=== PATIENT | male | born 1960 | race Asian ===

== ENCOUNTER 2017-06-27 13:26 | Emergency (ER) | payer BC ==
[~2017-06-27] VITALS: Ht 175.3 cm; Wt 71.9 kg
[~2017-06-27 13:26] MED LIST: UNABLE
[2017-06-27 13:32] VITALS: TEMP 36.8; Ht 175.3 cm; Wt 71.9 kg
--- NOTE | 2017-06-27 13:55 | EMERGENCY ROOM VISIT NOTE ---
History Report prepared by Ángela: Favian Adams Under the Supervision of: Dr. Sanjay Lam M.D. First contact with patient: 13:38 Chief Complaint: NEURO SYMPTOMS Stated Complaint: STROKE SYMPTOMS History of Present Illness The patient is a 57 year old male who presents to the Emergency Room with complaints of constant neuro symptoms starting yesterday evening. The patient states that he saw his doctor, and they notes that he was having some weakness in the right side of his face. He additionally notes that last weak he was having some itchiness, he has floaters in his eyes, and he has some intermittent neck pain. The patient denies any headache, hand weakness, chest pain, and any recent tick bites. He additionally notes that he has high cholesterol and is prediabetic. Source of History: patient Onset: yesterday evening Position: other (left face) Quality: other (weakness) Timing: constant Associated Symptoms: + neck pain, No headache Review of Systems See HPI for pertinent positives & negatives. A total of 10 systems reviewed and were otherwise negative. Past Medical & Surgical Medical Problems: (1) HLD (hyperlipidemia) (2) Prediabetes Social History Smoking Status: Never Smoker Marital Status: single Occupation Status: employed Current/Historical Medications Scheduled Prednisone (Prednisone Tab), 60 MG PO DAILY Allergies Coded Allergies: No Known Allergies (Unverified , 06/27/17) Physical Exam Vital Signs Date Time Temp Pulse Resp B/P (MAP) Pulse Ox O2 Delivery O2 Flow Rate FiO2 06/27/17 16:38 60 06/27/17 16:31 59 18 126/86 98 Room Air 06/27/17 15:31 68 20 120/71 97 Room Air 06/27/17 13:32 36.8 83 20 126/75 95 Room Air Physical Exam GENERAL: Patient is well appearing and in no acute distress. HEENT: No acute trauma, normocephalic atraumatic, mucous membranes moist, no nasal congestion, no scleral icterus. NECK: No stridor, no adenopathy, no meningismus, trachea is midline. LUNGS: No dyspnea. Clear to auscultation and equal bilaterally. No wheeze, no rhonchi. HEART: Regular rate and rhythm. No murmurs, rubs, gallops appreciated. ABDOMEN: Soft, nontender, bowel sounds positive, no masses appreciated, no peritonitis. BACK: No midline tenderness, no CVA tenderness EXTREMITIES: Normal motion all extremities, no cyanosis, no edema. NEUROLOGIC: Right lower facial droop with mild weakness of the right upper face. Alert and oriented, no acute motor or sensory deficits, no focal weakness , cranial nerves grossly intact. SKIN: No rash, no jaundice, no diaphoresis. Medical Decision & Procedures ER Provider Diagnostic Interpretation: Radiology results and stated below per my review and radiologist interpretation: BRAIN COMBO CLINICAL HISTORY: 57 years-old Male presenting with right facial droop, lower. h/o dmii, elevated lipids. TECHNIQUE: Multisequence, multiplanar MR imaging of the brain was performed before and after the administration of intravenous contrast. IV contrast: 7 mL of Gadavist. COMPARISON: 06/25/2010. FINDINGS: Ventricles and sulci normal in size. Periventricular and subcortical white matter T2/FLAIR hyperintensity, nonspecific but likely indicative of chronic small vessel ischemic change. No mass effect or midline shift. No restricted diffusion to suggest acute ischemia. No hemorrhage. No extra-axial fluid collection. T2 skull base flow voids preserved. No abnormal parenchymal enhancement. Suggestion of a small cystic appearing lesion in the region of the posterior pituitary, possibly a Rathke's left cyst. Bone marrow signal intensity within the calvarium within normal limits. Minimal mucosal thickening in the left maxillary sinus. IMPRESSION: 1. Chronic small vessel ischemic change. No acute intracranial abnormality. No abnormal enhancement. Electronically signed by: Andrea Hammond M.D. 06/27/2017 4:40 PM Dictated Date/Time: 06/27/2017 4:33 PM Laboratory Results 06/27/17 14:20 Red Blood Count 4.70, Mean Corpuscular Volume 90.0, Mean Corpuscular Hemoglobin 30.9, Mean Corpuscular Hemoglobin Concent 34.3, Mean Platelet Volume 10.2, Neutrophils (%) (Auto) 52.2, Lymphocytes (%) (Auto) 37.9, Monocytes (%) (Auto) 7.3, Eosinophils (%) (Auto) 2.2, Basophils (%) (Auto) 0.2, Neutrophils # (Auto) 2.79, Lymphocytes # (Auto) 2.03, Monocytes # (Auto) 0.39, Eosinophils # (Auto) 0.12, Basophils # (Auto) 0.01 06/27/17 14:20 Test 06/27/17 14:20 White Blood Count 5.35 K/uL (4.8-10.8) Red Blood Count 4.70 M/uL (4.7-6.1) Hemoglobin 14.5 g/dL (14.0-18.0) Hematocrit 42.3 % (42-52) Mean Corpuscular Volume 90.0 fL (80-100) Mean Corpuscular Hemoglobin 30.9 pg (25-34) Mean Corpuscular Hemoglobin Concent 34.3 g/dl (32-36) Platelet Count 197 K/uL (130-400) Mean Platelet Volume 10.2 fL (7.4-10.4) Neutrophils (%) (Auto) 52.2 % Lymphocytes (%) (Auto) 37.9 % Monocytes (%) (Auto) 7.3 % Eosinophils (%) (Auto) 2.2 % Basophils (%) (Auto) 0.2 % Neutrophils # (Auto) 2.79 K/uL (1.4-6.5) Lymphocytes # (Auto) 2.03 K/uL (1.2-3.4) Monocytes # (Auto) 0.39 K/uL (0.11-0.59) Eosinophils # (Auto) 0.12 K/uL (0-0.5) Basophils # (Auto) 0.01 K/uL (0-0.2) RDW Standard Deviation 42.7 fL (36.4-46.3) RDW Coefficient of Variation 12.9 % (11.5-14.5) Immature Granulocyte % (Auto) 0.2 % Immature Granulocyte # (Auto) 0.01 K/uL (0.00-0.02) Anion Gap 6.0 mmol/L (3-11) Est Creatinine Clear Calc Drug Dose 92.8 ml/min Estimated GFR () 111.0 Estimated GFR (Non- 95.8 BUN/Creatinine Ratio 18.0 (10-20) Calcium Level 8.6 mg/dl (8.5-10.1) Troponin I < 0.015 ng/ml (0-0.045) Chemistry Specimen Hemolysis Lyme Disease IgG Antibody NEG (NEG) Lyme Disease IgM Antibody NEG (NEG) Laboratory results as reviewed by me. ECG Indication: other (neuro symptoms) Rate (beats per minute): 64 Rhythm: normal sinus Findings: no acute ischemic change, no ectopy ED Course 1338: The patient was evaluated in room C7. A complete history and physical exam was performed. 1656: I reevaluated the patient, and he was feeling good and wants to go home. He will be discharged home. Medical Decision Differential: Sepsis, Infectious (UTI/Pneumonia/Meningitis/etc), Metabolic/ Electrolyte Abnormality, Cardiac, Hepatic, Endocrine, Toxicologic, Neurologic, amongst other pathologies entertained. 57 yr old male arrives for evaluation of right facial weakness. Low grade bells by exam with mild weakness right lower face and even less right upper. No other neuro deficits. Labs normal other than mild bg elevation. Lyme negative. MRI done given concern for possible stroke with his risk factors which is negative. He looks well, has no eye involvement, no rash/shingles evident and is comfortable. Meets no inpatient criteria. Meets criteria for prednisone (per guidelines 60mg x 7 days) but not for acyclovir. Stressed PCP appointment as soon as possible. Reviewed symptoms requiring RTED. Medication Reconcilliation Current Medication List: was personally reviewed by me Blood Pressure Screening Patient's blood pressure: Normal blood pressure Impression Primary Impression: Bautista's palsy Additional Impression: Weakness on right side of face Scribe Attestation The scribe's documentation has been prepared under my direction and personally reviewed by me in its entirety. I confirm that the note above accurately reflects all work, treatment, procedures, and medical decision making performed by me. Departure Information Dispostion Home / Self-Care Prescriptions Prednisone (Prednisone Tab) 20 Mg Tab 60 MG PO DAILY for 6 Days, #18 TAB Prov: Sanjay Lam M.D. 06/27/17 Referrals Saud Noe M.D. (PCP) Forms HOME CARE DOCUMENTATION FORM, IMPORTANT VISIT INFORMATION, WORK / SCHOOL INSTRUCTIONS Patient Instructions ED [place]als[place], My [facility] Additional Instructions You must follow up with your primary care provider in the next few days for repeat evaluation. Prednisone can make your blood sugars go up thus you must avoid intake of excess sugar, carbohydrates. Problem Qualifiers
[2017-06-27 14:33] LABS: BASO % 0.2 %; BASO ABS # 0.01 K/uL (0-0.2); COMPLETE YES; EOS % 2.2 %; HEMATOCRIT 42.3 % (42-52); IG% 0.2 %; LYMPH % 37.9 %; LYMPH ABS # 2.03 K/uL (1.2-3.4); MEAN CORPUSCULAR HEMOGLOBIN 30.9 pg (25-34); MEAN CORPUSCULAR HGB CONC 34.3 g/dl (32-36); MEAN PLATELET VOLUME 10.2 fL (7.4-10.4); MONO % 7.3 %; NEUT % 52.2 %; PLATELET COUNT 197 K/uL (130-400); WHITE BLOOD COUNT 5.35 K/uL (4.8-10.8)
[2017-06-27 14:50] LABS: BLOOD UREA NITROGEN 16 mg/dl (7-18); CALCIUM 8.6 mg/dl (8.5-10.1); CARBON DIOXIDE 27 mmol/L (21-32); CHLORIDE 108 mmol/L (98-107); GLUCOSE 121 mg/dl (70-99); POTASSIUM 4.1 mmol/L (3.5-5.1); SODIUM 141 mmol/L (136-145)
[2017-06-27 15:52] LABS: LYME DISEASE AB IGG NEG (NEG); LYME DISEASE AB IGM NEG (NEG)
[2017-06-27] MEDS ORDERED: GADAVIST IV PRN (16:30)
--- NOTE | 2017-06-27 16:41 | DIAGNOSTIC IMAGING REPORT ---
BRAIN COMBO CLINICAL HISTORY: 57 years-old Male presenting with right facial droop, lower. h/o dmii, elevated lipids. TECHNIQUE: Multisequence, multiplanar MR imaging of the brain was performed before and after the administration of intravenous contrast. IV contrast: 7 mL of Gadavist. COMPARISON: 06/25/2010. FINDINGS: Ventricles and sulci normal in size. Periventricular and subcortical white matter T2/FLAIR hyperintensity, nonspecific but likely indicative of chronic small vessel ischemic change. No mass effect or midline shift. No restricted diffusion to suggest acute ischemia. No hemorrhage. No extra-axial fluid collection. T2 skull base flow voids preserved. No abnormal parenchymal enhancement. Suggestion of a small cystic appearing lesion in the region of the posterior pituitary, possibly a Rathke's left cyst. Bone marrow signal intensity within the calvarium within normal limits. Minimal mucosal thickening in the left maxillary sinus. IMPRESSION: 1. Chronic small vessel ischemic change. No acute intracranial abnormality. No abnormal enhancement. Electronically signed by: Andrea Hammond M.D. 06/27/2017 4:40 PM Dictated Date/Time: 06/27/2017 4:33 PM
[2017-06-27] MEDS ORDERED: PRED20TA2 PO (17:00)
[2017-06-27 17:22] VITALS: BP 122/77; PULSE 63; O2SAT 99
== END 2017-06-27 17:24 | disposition home or self-care (01) ==
LOC: C.EDB 13:27 → C.EDC 17:24
DX: G51.0 Bell's palsy (principal); E78.5 Hyperlipidemia, unspecified; R73.03 Prediabetes

== ENCOUNTER → 2017-10-22 | Outpatient (CLI) | payer OTHER ==
--- NOTE | 2017-10-22 17:04 | DIAGNOSTIC IMAGING REPORT ---
LUMBAR SPINE 5 VIEWS CLINICAL HISTORY: Low back pain. FINDINGS: 5 views of the lumbar spine are compared to study dated 04/02/2010. The skeletal structures are well mineralized. There is no radiographic evidence of fracture or malalignment. Vertebral body height and alignment are maintained. There is straightening of the lumbar lordosis. Tiny anterior osteophytes are seen throughout. The transverse and spinous processes are intact. There is no evidence of spondylolysis. The intervertebral disc spaces are well-maintained. The visualized bony pelvis appears intact. There is a nonobstructed abdominal bowel gas pattern. Moderate fecal retention is noted throughout the colon. Atherosclerotic calcification is noted in the abdominal aorta. IMPRESSION: 1. No acute bony abnormality is seen involving the lumbosacral spine. 2. Moderate constipation. Electronically signed by: Nayan Colón M.D. 10/22/2017 5:03 PM Dictated Date/Time: 10/22/2017 5:02 PM
== END | disposition home or self-care (01) ==
LOC: C.RAD1850 16:45
PROVIDERS: ATTEND Family Medicine
DX: M54.5 Low back pain (principal)

== ENCOUNTER → 2018-04-07 | Outpatient (CLI) | payer OTHER ==
[~2018-04-07] MED LIST changes: +GADAVIST IV PRN; -UNABLE
--- NOTE | 2018-04-07 15:14 | DIAGNOSTIC IMAGING REPORT ---
MRI OF THE BRAIN COMBO CLINICAL HISTORY: Dizziness. Visual changes. COMPARISON STUDY: MRI of the brain dated 06/27/2017. TECHNIQUE: MRI of the brain was performed utilizing various T1 and T2-weighted sequences in the axial, sagittal, and coronal planes. Contrast-enhanced sequences were acquired following the administration of 8 cc of Gadavist. FINDINGS: Brain parenchyma: There is mild patchy subcortical and periventricular microangiopathic change, similar in appearance to the 06/27/2017 examination. The brain parenchyma is otherwise normal in appearance. There is no hemorrhage or mass effect. There is no restricted diffusion to suggest acute ischemia. No enhancing mass lesion is identified on the postcontrast images. Hammond-white matter differentiation is preserved. No extra-axial fluid collection is seen. The cerebellar tonsils are normal in configuration. Ventricles, sulci, and cisterns: Normal in configuration. Pituitary and sella: Unremarkable. Intracranial vasculature: Normal flow voids are maintained at the skull base. Orbits: The bony orbits are grossly intact. Orbital contents are normal in appearance. Sinuses and mastoids: There is trace mucosal thickening within the maxillary antra. A 2.2 cm retention cyst is noted on the right. Trace mucosal thickening is also seen within the posterior right ethmoid sinuses. The mastoid air cells are clear Calvarium: Unremarkable. Cervical cord: Partially visualized cervical spinal cord is normal in morphology and signal intensity. IMPRESSION: No acute intracranial abnormality. Electronically signed by: Nayan Colón M.D. 04/07/2018 3:12 PM Dictated Date/Time: 04/07/2018 3:09 PM
== END | disposition home or self-care (01) ==
LOC: C.MRI 14:05
PROVIDERS: ATTEND Family Medicine
DX: R42 Dizziness and giddiness (principal); H53.9 Unspecified visual disturbance